=== PATIENT | female | born 1950 | race Caucasian/White ===

== ENCOUNTER 2018-02-24 14:15 | Emergency (ER) | payer MEDICARE, OTHER ==
[~2018-02-24] VITALS: Ht 175.3 cm; Wt 74.8 kg
[~2018-02-24 14:15] MED LIST: BACLOFEN10 MG PO; LYRICA50 MG PO; NORCO 7.5-3251 EACH PO
--- OUTSIDE RECORDS SUMMARY | 2018-02-24 14:17 | XMS REPORT | Clinical Summary ---
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 Active AUBAGIO 14 mg tablet 0 8 Active diclofenac (VOLTAREN) 50 TAKE 1 TABLET 60 tablet 0 02/16/201 MG EC tablet BY MOUTH 8 TWICE DAILY 01/12/2018 Discontinued diclofenac (VOLTAREN) 50 Take 1 tablet 60 tablet 2 MG EC tablet (50 mg total) 8 by mouth 2 (two) times a day for 90 days. 02/16/2018 Discontinued diclofenac (VOLTAREN) 50 TAKE 1 TABLET 60 tablet 0 01/12/201 MG EC tablet BY MOUTH 8 TWICE DAILY Active Problems Problem Noted Date Allergy to metal 10/14/2017 Primary osteoarthritis of right knee 10/14/2017 Encounters Care Team Description Date Type Specialty Santos Martell Jr., MD 02/16/2018 Refill Orthopedic Surgery Doretha Martinez MA Right foot pain (Primary Dx) 01/31/2018 Orders Only Orthopedic Surgery Santos Martell Jr., MD Palafox-Chua, Erica Renee, FNP Primary osteoarthritis of right knee (Primary Dx) 01/20/2018 Office Visit Orthopedic Surgery Santos Martell Jr., MD 01/12/2018 Refill Orthopedic Surgery Santos Martell Jr., MD Allergy to metal (Primary Dx); Primary osteoarthritis of right knee 10/14/2017 Office Visit Orthopedic Surgery Heike Vaughn MA Right knee pain, unspecified chronicity (Primary Dx) 10/13/2017 Orders Only Orthopedic Surgery after 02/23/2017 Family History Medical History Relation Name Comments Diabetes Father Hypertension Father Cancer Mother Relation Name Status Comments Father Mother Social History Date Tobacco Use Types Packs/Day Years Used Former Smoker Smokeless Tobacco: Never Used Alcohol Use Drinks/Week oz/Week Comments Yes Occasional Sex Assigned at Date Recorded Not on file Industry Job Start Date Occupation Not on file Not on file Not on file Travel End Travel History Travel Start No recent travel history available. Last Filed Vital Signs Time Taken Vital Sign Reading 01/20/2018 11:27 AM CDT Blood Pressure 151/96 01/20/2018 11:27 AM CDT Pulse 72 - Temperature - - Respiratory Rate - - Oxygen Saturation - - Inhaled Oxygen - Concentration 01/20/2018 11:24 AM CDT Weight 77.1 kg (170 lb) 01/20/2018 11:24 AM CDT Height 172.7 cm (5' 8") 01/20/2018 11:24 AM CDT Body Mass Index 25.85 Plan of Treatment Health Maintenance Due Date Last Done Comments BREAST CANCER SCREENING 10/06/2001 COLON CANCER SCREENING 10/06/2001 SHINGRIX VACCINE (1 of 2) 10/06/2001 ZOSTER VACCINE 2011 PNEUMOCOCCAL 10/06/2016 POLYSACCHARIDE VACCINE AGE 65 AND OVER PNEUMOCOCCAL-13 10/06/2016 INFLUENZA VACCINE 10/20/2017 Procedures Comments Procedure Name Priority Date/Time Associated Diagnosis XR KNEE 4+ VW RIGHT Routine 10/14/2017 Right knee pain, 10:37 AM CDT unspecified chronicity after 02/23/2017 Results * XR Knee 4+ Vw Right (10/14/2017 10:37 AM CDT) Impressions Performed At OA knee lateral severe and mild anterior. [facility] Narrative Performed At [facility]: Right FINDINGS: AP, lateral, tunnel, and sunrise views were obtained of the right knee. The bones are intact and normally located.There are derek erosions and evidence of lateral joint space loss. Mild effusion. Performing Organization Address City/State/Zipcode Phone Number [facility] [address] [place] [address] after 02/23/2017 Insurance Payer Benefit Subscriber ID Type Phone Address Plan / Group HUMANA MEDICARE HUMANA xxxxxxxxx PPO MEDICARE PPO/PFFS/E RS MCR Advance Directives Patient has advance care planning documents on file. For more information, walt kc contact: Sebastian Barton [address] [place] [phone]
--- NOTE | 2018-02-24 15:29 | Diagnostic Imaging Report ---
CT BRAIN WO HISTORY: Fall, trauma COMPARISON: None. TECHNIQUE: Noncontrast axial scans were obtained from skull base to the vertex. Coronal and sagittal reconstructions obtained from the axial data. One or more of the following dose reduction techniques were used: Automated exposure control, adjustment of the mA and/or kV according to patient size, and/or utilization of iterative reconstruction technique. DISCUSSION: Scalp/Skull: There is a small right parieto-occipital scalp hematoma. No calvarial fracture is seen. Brain sulci: Appropriate for patient's age. Ventricles: Normal in size and configuration. No hydrocephalus. Extra-axial spaces: No masses or fluid collections. Carotid siphon calcifications are present. Parenchyma: Mild periventricular white matter hypodensities are likely chronic microvascular ischemic changes. Otherwise, no masses, hemorrhage, or large vascular territory acute infarct. Dural sinuses: No abnormal densities. Sellar/Suprasellar region: Intact. Skull base: Intact. Incidental findings: None. IMPRESSION: No acute intracranial abnormalities. Mild supratentorial chronic microvascular ischemic change. Signed by: Dr. Chapo Crane M.D. on 02/24/2018 3:26 PM
[2018-02-24] MEDS ORDERED: TETANUS/DIPHTHERIA TOX ADULT 0.5 ML SYR IM ONE (16:30)
[2018-02-24 16:45] VITALS: BP 148/82
== END 2018-02-24 16:48 | disposition home or self-care (01) ==
LOC: ER 14:15
DX: S01.01XA Laceration without foreign body of scalp, initial encounter (principal); S00.83XA Contusion of other part of head, initial encounter; W18.31XA Fall on same level due to stepping on an object, initial encounter; Y92.008 Other place in unspecified non-institutional (private) residence as the place of occurrence of the external cause; I10 Essential (primary) hypertension; G35 Multiple sclerosis; G50.0 Trigeminal neuralgia
CPT/HCPCS: 70450; 90471; 90714; 99283

== ENCOUNTER 2018-06-15 21:39 | Emergency (ER) | payer MEDICARE ==
[~2018-06-15] VITALS: Ht 175.3 cm; Wt 74.8 kg
--- OUTSIDE RECORDS SUMMARY | 2018-06-15 21:40 | XMS REPORT ---
Author [facility] Address Unknown Phone Unavailable Care Team Providers Care Activity Manager Name Role Phone Armando SÁNCHEZ Unavailable Unavailable Payers Payer Name Policy Type Policy Number Effective Date Expiration Date Problems This patient has no known problems. Allergies, Adverse Reactions, Alerts Allergy Name Allergy Type Status Severity Reaction(s) Onset Date Inactive Date Treating Clinician Comments carbamazepine DA Active MO 2018-04-04 00:00:00 nickel DA Active MO 2018-04-04 00:00:00 Medications This patient has no known medications. Results Test Description Test Time Test Comments Text Results Atomic Results Result Comments - XR KNEE 1 OR 2 V RT 2018-04-20 10:01:00 Patient Name: LARS MEEKS Unit No: [id number] EXAMS: CPT CODE: [id number] XR KNEE 1 OR 2 V RT 7356 0 AP AND LATERAL VIEW OF THE RIGHT KNEE COMMENT: Patient is status post total right knee arthroplasty. The prosthesis appears to be in good position. at 1001 Reported and signed by: Caprice Smith MD CC: Edmond Bansal MD Technologist: ASHLEY BALDWIN (RT.R) Transcribed D/ (1001) [email or web address] [facility] NAME: LARS MEEKS [address] [facility] PHYS: Edmond Muro MD : 1950 AGE: 67 SEX: F [place], [place] [address] LOC: Y.302 A PHONE #: [phone] EXAM DATE: 04/19/2018 STATUS: ADM IN FAX #: [phone] RAD #: D/C DT PAGE 1 Signed Report Patient Name: LARS MEEKS Unit No: [id number] EXAMS: CPT CODE: [id number] XR KNEE 1 OR 2 V RT 36231 <Continued> Orig Print D/T: S: 04/20/2018 (1005) [facility] NAME: LARS MEEKS [address] [facility] PHYS: Edmond Muro MD : 1950 AGE: 67 SEX: F [place], [place] [address] LOC: Y.302 A PHONE #: [phone] EXAM DATE: 04/19/2018 STATUS: ADM IN FAX #: [phone] RAD #: D/C DT PAGE 2 Signed Report BASIC METABOLIC PANEL 2018-04-20 06:24:00 SODIUM (test code=NA) 139 mmol/L 136-145 POTASSIUM (test code=K) 4.8 mmol/L 3.5-5.1 CHLORIDE (test code=CL) 103.0 mmol/L 98-107 CARBON DIOXIDE (test code=CO2) 24.9 mmol/L 21-32 GLUCOSE (test code=GLU) 122 mg/dL 70-110 BLOOD UREA NITROGEN (test code=BUN) 14 mg/dL 7-18 GLOMERULAR FILTRATION RATE (test code=GFR) 79.8 >60 Unit of measure: mL/min/1.73 [id number] Range:Healthy Adults >90 mL/min/1.73 m2 For Chronic Kidney Disease: Stage II Mild Decrease in GFR 60-90 Stage III Moderate Decrease in GFR 30-59 Stage IV Severe Decrease in GFR 15-29 Stage V Kidney Failure <15 CREATININE (test code=CREAT) 0.73 mg/dL 0.55-1.30 CALCIUM (test code=CA) 8.5 mg/dL 8.2-10.1 HGB [id number] 06:01:00* Test Item Value Reference Range Comments HEMOGLOBIN (test code=HGB) 9.6 g/dL 12-16 HEMATOCRIT (test code=HCT) 31.0 % 37-47 CT BRAIN [id number] 15:23:00 [facility] [address] [address] Patient Name: LARS MEEKS MR #: [id number] : 1950 Age/Sex: 67/F Req #: [id number] Adm Physician: Ordered by: AMITA SÁNCHEZ MD Report #: [id number] Location: ER Room/Bed: Procedure: [id number] CT/CT BRAIN WO Exam Date: 02/24/18 Exam Time: 1500 REPORT STATUS: Signed CT BRAIN WO HISTORY: Fall, trauma COMPARISON: None. TECHNIQUE: Noncontrast axial scans were obtained from skull base to the vertex. Coronal and sagittal reconstructions obtained from the axial data. One or more of the following dose reduction techniques were used: Automated exposure control, adjustment of the mA and/or kV according to patient size, and/or utilization of iterative reconstruction technique. DISCUSSION: Scalp/Skull: There is a small r ight parieto-occipital scalp hematoma. No calvarial fracture is seen. Brain sulci: Appropriate for patient's age. Ventricles: Normal in size and configura tion. No hydrocephalus. Extra-axial spaces: No masses or fluid collections. Carotid siphon calcifications are present. Parenchyma: Mild periventri cular white matter hypodensities are likely chronic microvascular ischemic edilberto nges. Otherwise, no masses, hemorrhage, or large vascular territory acute infa rct. Dural sinuses: No abnormal densities. Sellar/Suprasellar region: In tact. Skull base: Intact. Incidental findings: None. IMPRESSION: N o acute intracranial abnormalities. Mild supratentorial chronic microvascular ischemic change. Signed by: Dr. Chapo Crane M.D. on 02/24/2018 3:26 PM Dictated By: CHAPO CRANE MD [id number] Transcribed By: GORDO on 02/24/18 1526 COPY TO: AMITA SÁNCHEZ MD
[2018-06-15] MEDS ORDERED: ACETAMINOPHEN 325 MG TAB ONE (21:57)
[2018-06-15] MEDS ORDERED: ACETAMINOPHEN 325 MG TAB PO ONE (22:15)
[2018-06-15 22:16] LABS: BASOPHILS # (AUTO) 0.1 (0.0-0.1); EOSINOPHILS # (AUTO) 0.1 (0.0-0.4); HEMATOCRIT 39.2 % (34.2-44.1); HEMOGLOBIN 11.6 g/dL (12.0-16.0); LYMPHOCYTES # (AUTO) 0.9 (1.0-3.2); LYMPHOCYTES % 11.7 % (18.0-39.1); MEAN CORPUSCULAR HEMOGLOBIN 24.2 pg (28-32); MEAN CORPUSCULAR HGB CONC 29.6 g/dL (31-35); MEAN CORPUSCULAR VOLUME 81.8 fL (81-99); MONOCYTES # (AUTO) 0.6 (0.2-0.8); MONOCYTES % 7.3 % (4.4-11.3); NEUTROPHILS # (AUTO) 6.1 (2.1-6.9); NEUTROPHILS % 78.6 % (38.7-80.0); PLATELET COUNT 294 x10e3/uL (140-360); RED BLOOD COUNT 4.79 x10e6/uL (3.6-5.1)
[2018-06-15 22:26] LABS: BILIRUBIN,URINE NEGATIVE (NEGATIVE); CLARITY,URINE CLEAR (CLEAR); COLOR,URINE YELLOW (YELLOW); KETONES,URINE NEGATIVE (NEGATIVE); LEUKOCYTE ESTERASE ,URINE NEGATIVE (NEGATIVE); NITRITE,URINE NEGATIVE (NEGATIVE); PROTEIN,URINE DIPSTICK NEGATIVE (NEGATIVE); URINE UROBILINOGEN 0.2 mg/dL (0.2 - 1); WBC,URINE (MAN) 21-50 /HPF (0-5)
[2018-06-15 22:27] LABS: BACTERIA,URINE MANY /HPF; EPITHELIAL CELLS,URINE RARE /LPF
[2018-06-15 22:31] LABS: ALANINE AMINOTRANSFERASE 9 IU/L (0-55); ALBUMIN 3.6 g/dL (3.5-5.0); ALKALINE PHOSPHATASE 101 IU/L (40-150); ANION GAP 13.6 mmol/L (8-16); BLOOD UREA NITROGEN 9 mg/dL (7-26); BUN/CREATININE RATIO 12 (6-25); CALCIUM 9.3 mg/dL (8.4-10.2); CARBON DIOXIDE 24 mmol/L (22-29); CHLORIDE 100 mmol/L (98-107); CREATININE, SERUM 0.73 mg/dL (0.57-1.11); EST GLOMERULAR FILTRATION RATE > 60 ML/MIN (60-); GLUCOSE 115 mg/dL (74-118); POTASSIUM 3.6 mmol/L (3.5-5.1); SODIUM 134 mmol/L (136-145)
[2018-06-15] MEDS ORDERED: CEFTRIAXONE SOD 1 GM/NS 50 ML 50 ML IV ONE (22:45)
--- NOTE | 2018-06-16 00:04 | Diagnostic Imaging Report ---
EXAMINATION: CHEST SINGLE (PORTABLE) INDICATION: fever COMPARISON: None FINDINGS: AP view TUBES and LINES: None. LUNGS: Lungs are well inflated. Lungs are clear. There is no evidence of pneumonia or pulmonary edema. PLEURA: No pleural effusion or pneumothorax. HEART AND MEDIASTINUM: The cardiomediastinal silhouette is unremarkable. BONES AND SOFT TISSUES: No acute osseous lesion. Lower cervical fusion hardware. Soft tissues are unremarkable. UPPER ABDOMEN: No free air under the diaphragm. IMPRESSION: No acute thoracic abnormality. Signed by: DR. Miles Morin MD on 06/16/2018 12:00 AM
== END 2018-06-16 00:51 | disposition home or self-care (01) ==
LOC: ER 21:39
DX: S50.11XA Contusion of right forearm, initial encounter (principal); W06.XXXA Fall from bed, initial encounter; Y93.9 Activity, unspecified; Y92.003 Bedroom of unspecified non-institutional (private) residence as the place of occurrence of the external cause; I10 Essential (primary) hypertension; N30.91 Cystitis, unspecified with hematuria; G35 Multiple sclerosis; G50.0 Trigeminal neuralgia
CPT/HCPCS: 36415; 71045; 80053; 81001; 83605; 85025; 87040; 87086; 87186; 93005; 99284; J0696

== ENCOUNTER 2018-11-27 15:45 | Emergency (ER) | payer MEDICARE ==
[~2018-11-27] VITALS: Ht 175.3 cm; Wt 74.8 kg
--- OUTSIDE RECORDS SUMMARY | 2018-11-27 15:48 | XMS REPORT | Clinical Summary ---
Author Author [facility] Address Unknown Phone Unavailable Care Team Providers Care Project Superintendent Name Role Phone PCP Unavailable Allergies Not on File Medications Not on file Active Problems Not on file Encounters Care Team Description Date Type Specialty System, Provider Not In Multiple sclerosis (HCC) (Primary Dx); Abnormality of gait 2018 Outside Orders Central Scheduling after 11/26/2017 Social History Date Tobacco Use Types Packs/Day Years Used Never Assessed Sex Assigned at Date Recorded Not on file Industry Job Start Date Occupation Not on file Not on file Not on file Travel End Travel History Travel Start No recent travel history available. Last Filed Vital Signs Not on file Plan of Treatment Not on file Results Not on fileafter 11/26/2017
[2018-11-27] MEDS ORDERED: SODIUM CHLORIDE 0.9% 1000ML 1,000 ML IV STA (16:35)
[2018-11-27] MEDS ORDERED: ACETAMINOPHEN/CODEINE 300MG - 30MG TAB PO ONE (16:45)
[2018-11-27] MEDS ORDERED: ONDANSETRON HCL INJ 2MG/ML 2ML 2 MG/ML VIAL IV NR (16:45)
[2018-11-27] MEDS ORDERED: HYDRALAZINE HCL 20 MG/ML VIAL IV NR (17:30)
--- NOTE | 2018-11-27 17:37 | Diagnostic Imaging Report ---
Examination: CT head without contrast Clinical Indication: Headache; fall with head injury. Technique: Transaxial noncontrast images from the skull base through the vertex were obtained. Sagittal and coronal reformatted images were done. Dose modulation, iterative reconstruction, and/or weight based adjustment of the mA/kV was utilized to reduce the radiation dose to as low as reasonably achievable. Comparison: 02/24/2018. Findings: Scalp: No abnormalities. Bones: Intact. No fractures. No blastic or lytic lesions. Brain sulci: Appropriate for patient's age. Ventricles: Normal in size and configuration. No hydrocephalus. . Extra-axial space: No abnormalities. Parenchyma: There are subtle confluent areas of low-attenuation within subcortical and periventricular white matter, nonspecific, but could represent microvascular ischemic disease. No masses, hemorrhage, or acute or chronic cortical based vascular insults. Suprasellar region: No abnormalities. Craniocervical junction: The foramen magnum is patent. No Chiari one malformation. Impression: 1. No acute intracranial finding. 2. Unchanged mild chronic microvascular ischemic change when compared to prior head CT dated 02/24/2018. Signed by: Dr. Faina Guillermo M.D. on 11/27/2018 5:34 PM
--- NOTE | 2018-11-27 17:53 | Diagnostic Imaging Report ---
EXAMINATION: CHEST SINGLE (PORTABLE) INDICATION: Severe headache. COMPARISON: Chest radiograph 06/14/2018. FINDINGS: TUBES and LINES: None. LUNGS: Lungs are well inflated. There is no evidence of pneumonia or pulmonary edema. PLEURA: No pleural effusion or pneumothorax. HEART AND MEDIASTINUM: The cardiomediastinal silhouette is unremarkable. BONES AND SOFT TISSUES: No acute osseous abnormality. UPPER ABDOMEN: No free air under the diaphragm. IMPRESSION: No acute radiographic abnormality. Signed by: Dr. Mikaela Dejesus MD on 11/27/2018 5:50 PM
[2018-11-27 18:07] LABS: BASOPHILS # (AUTO) 0.1 (0.0-0.1); BASOPHILS % 0.8 % (0.0-1.0); EOSINOPHILS % 0.3 % (0.0-6.0); HEMATOCRIT 41.7 % (34.2-44.1); HEMOGLOBIN 13.3 g/dL (12.0-16.0); LYMPHOCYTES % 13.3 % (18.0-39.1); MEAN CORPUSCULAR HEMOGLOBIN 25.4 pg (28-32); MEAN CORPUSCULAR HGB CONC 31.9 g/dL (31-35); MEAN CORPUSCULAR VOLUME 79.7 fL (81-99); MONOCYTES # (AUTO) 0.7 (0.2-0.8); MONOCYTES % 8.3 % (4.4-11.3); NEUTROPHILS % 76.8 % (38.7-80.0); PLATELET COUNT 249 x10e3/uL (140-360); RED BLOOD COUNT 5.23 x10e6/uL (3.6-5.1)
--- NOTE | 2018-11-27 18:07 | Diagnostic Imaging Report ---
Examination: CT CERVICAL SPINE WO CONTRAST HISTORY:Neck injury after syncope. COMPARISON:None. TECHNIQUE: Multidetector helical axial images were obtained without contrast from the foramen magnum to T1. Coronal and sagittal reformatted images were done. Bone and soft tissue windows were evaluated. Dose modulation, iterative reconstruction, and/or weight based adjustment of the mA/kV was utilized to reduce the radiation dose to as low as reasonably achievable. FINDINGS: Alignment:Normal alignment with straightening of normal lordosis. Vertebrae: Anterior discectomy and fusion at C5 and C6. No lucency surrounding hardware or hardware fracture. Normal height and density. No acute fracture, infection or neoplasm. Caliber of spinal canal: Developmentally normal. Posterior fossa and craniocervical junction: Foramen magnum patent. No Chiari 1 malformation. Soft tissues: No abnormality. Degenerative changes: Disc osteophytes at C2-C3 and C3-C4 without canal stenosis. C3-C4: Moderate left foraminal narrowing due to left uncovertebral and facet arthropathy. Grade 1 anterolisthesis of C4 on C5 with severe left facet arthropathy. C4-C5: Moderate left foraminal narrowing due to left uncovertebral and facet arthropathy and diffuse disc osteophyte complex. C5-6: Mild right narrowing due to right uncovertebral and facet arthropathy. No disc bulge/ herniation or foraminal or canal stenosis. Visualized lung apices: No abnormalities. IMPRESSION: 1. No acute abnormalities. 2. Degenerative change, as above. Signed by: Dr. Faina Guillermo M.D. on 11/27/2018 6:03 PM
[2018-11-27 18:18] LABS: INR 0.92; PROTHROMBIN TIME 12.8 seconds (11.9-14.5)
[2018-11-27 18:26] LABS: ALANINE AMINOTRANSFERASE 18 IU/L (0-55); ALBUMIN 4.3 g/dL (3.5-5.0); ALBUMIN/GLOBULIN RATIO 1.1 (0.8-2.0); ALKALINE PHOSPHATASE 91 IU/L (40-150); ANION GAP 19.9 mmol/L (8-16); BLOOD UREA NITROGEN 9 mg/dL (7-26); BUN/CREATININE RATIO 13 (6-25); CALCIUM 10.3 mg/dL (8.4-10.2); CARBON DIOXIDE 26 mmol/L (22-29); CHLORIDE 100 mmol/L (98-107); CREATINE KINASE 87 IU/L (29-168); CREATININE, SERUM 0.71 mg/dL (0.57-1.11); EST GLOMERULAR FILTRATION RATE > 60 ML/MIN (60-); GLUCOSE 99 mg/dL (74-118); POTASSIUM 3.9 mmol/L (3.5-5.1); SODIUM 142 mmol/L (136-145)
[2018-11-27 18:30] LABS: BILIRUBIN,URINE NEGATIVE (NEGATIVE); CLARITY,URINE CLEAR (CLEAR); COLOR,URINE YELLOW (YELLOW); KETONES,URINE NEGATIVE (NEGATIVE); LEUKOCYTE ESTERASE ,URINE NEGATIVE (NEGATIVE); NITRITE,URINE NEGATIVE (NEGATIVE); PROTEIN,URINE DIPSTICK TRACE (NEGATIVE); URINE UROBILINOGEN 0.2 mg/dL (0.2 - 1)
[2018-11-27 18:55] LABS: BACTERIA,URINE MODERATE /HPF; EPITHELIAL CELLS,URINE MODERATE /LPF
[2018-11-27] MEDS ORDERED: KETOROLAC TROMETHAMINE 30 MG/ML VIAL IV NR (19:18)
[2018-11-27] MEDS ORDERED: METOCLOPRAMIDE HCL 10 MG/2ML VIAL IV NR (19:30)
[2018-11-27] MEDS ORDERED: DIPHENHYDRAMINE HCL INJ 50 MG/ML VIAL IV PRN (19:30)
[2018-11-27] MEDS: ACETAMIN/BUTALBITAL/CAFFEINE TAB PO ONE ×2 (21:37→21:57)
[2018-11-27 21:42] VITALS: BP 157/84
== END 2018-11-27 22:51 | disposition home or self-care (01) ==
LOC: ER 15:45
DX: R51 Headache (principal); W01.0XXA Fall on same level from slipping, tripping and stumbling without subsequent striking against object, initial encounter; Y93.01 Activity, walking, marching and hiking; Y92.531 Health care provider office as the place of occurrence of the external cause; I10 Essential (primary) hypertension; F41.9 Anxiety disorder, unspecified; G35 Multiple sclerosis; Z96.651 Presence of right artificial knee joint
CPT/HCPCS: 36415; 70450; 71045; 72125; 80053; 81001; 82550; 82553; 84484; 85025; 85610; 85730; 87086; 87186; 93005; 99284; J0360; J1885; J2405; J2765; J7030